=== PATIENT | male | born 2000 | race Caucasian/White ===

== ENCOUNTER 2019-01-13 20:15 | Emergency (ER) | payer OTHER ==
[2019-01-13 20:21] VITALS: BP 115/71
[2019-01-13] MEDS ORDERED: IBUPROFEN 800 MG TABLET PO ONE (20:29)
--- NOTE | 2019-01-13 20:43 | ER Document Report ---
HPI - HPI Time Seen by Provider: 01/13/19 20:26 Pain Level: 5 Notes: Patient is a 18-year-old male with no significant past medical history presents complaining nasal congestion/discharge, fever, sore throat, dry cough for the past 5 days. Patient states that his throat is the worst of the symptoms. He has noticed some exudates. He is able to eat and drink, but does have decreased p.o. intake. He is urinating normally and having normal bowel movements. Denies drug allergies. Denies any headache, fever, neck pain, changes in vision/speech/mentation/hearing, chest pain, palpitations, syncope, shortness of breath, wheeze, dyspnea, abdominal pain, nausea/vomiting/diarrhea, urinary retention, dysuria, hematuria, or rash. - ROS Systems Reviewed and Negative: Yes All other systems reviewed and negative Past Medical History - Social History Smoking Status: Former Smoker Family History: Reviewed & Not Pertinent Patient has suicidal ideation: No Patient has homicidal ideation: No Vertical Provider Document - CONSTITUTIONAL Agree With Documented VS: Yes Notes: PHYSICAL EXAMINATION: GENERAL: Well-appearing, well-nourished and in no acute distress. A&Ox4. Answers questions appropriately. Moves comfortably w/o notable distress HEAD: Atraumatic, normocephalic. EYES: Pupils equal round and reactive to light, extraocular movements intact, sclera anicteric, conjunctiva are normal. ENT: EAC clear b/l. TM's intact b/l without erythema, fluid, or perforation. Nares patent and with clear discharge. oropharynx erythema without exudates. 1+ tonsilar hypertrophy with erythema + exudates. No palatine shift. Uvula midline. No tongue protrusion. No drooling, hoarseness, or airway compromise. Moist mucous membranes. No sinus tenderness. NECK: Normal range of motion, supple without lymphadenopathy. No rigidity/meningismus. LUNGS: Breath sounds clear to auscultation bilaterally and equal. No wheezes rales or rhonchi. No retractions HEART: Regular rate and rhythm without murmurs, rubs, gallops. ABDOMEN: Soft, nontender, nondistended abdomen. No guarding, no rebound. Normal bowel sounds present. No CVA tenderness bilaterally. NEUROLOGICAL: Normal speech, normal gait. PSYCH: Normal mood, normal affect. SKIN: Warm, Dry, normal turgor, no rashes or lesions noted. Course - Re-evaluation Re-evalutation: 01/13/19 21:28 Patient is a well-hydrated, 18-year-old male who presents with strep pharyngitis and fever. Vitals are currently acceptable. Patient was given antipyretic for fever. Rapid strep positive. [place] and chest x-ray were negative. Patient is nontoxic-appearing and is tolerating p.o. without difficulty. Patient opted for the penicillin shot in lieu of a 10-day prescription. He also received Decadron. No further work-up warranted at this time. Low suspicion for any meningitis, sepsis, peritonsillar/pharyngeal abscess, respiratory compromise, Car's, or other emergent systemic condition at this time. Patient is aware this condition can change from initial presentation and he needs to monitor symptoms closely. Conservative measures otherwise for symptoms. Recheck with your PCM in 2-3 days. Return to the ED with any worsening/concerning symptoms otherwise as reviewed in discharge. Patient is in agreement. - Vital Signs Vital signs: Temp Pulse Resp BP Pulse Ox 102.2 F H 83 20 115/71 98 01/13/19 20:19 01/13/19 20:19 01/13/19 20:19 01/13/19 20:19 01/13/19 20:19 Discharge - Discharge Clinical Impression: Strep pharyngitis Condition: Stable Disposition: HOME, SELF-CARE Instructions: Strep Throat ([facility]) Additional Instructions: Maintain adequate fluid intake Take meds as directed Salt water gargles, throat sprays, mouthwash rinse, peroxide gargles tylenol/ibuprofen as needed New toothbrush tomorrow evening over the counter cold medication as needed for symptoms F/u: with your PCM in 2-3 days for a recheck Consider consult with ENT for ongoing/worsening symptoms Return to the ED with any fever, worsening pain, chest pain, neck pain/stiffness, shortness of breath, cough, drooling, trouble swallowing/bill thing, abdominal pain, n/v/d, rash, or worsening/concerning symptoms otherwise. Referrals: KUNAL MERAZ DO [ASSOCIATE] - Follow up as needed
--- NOTE | 2019-01-13 21:01 | RADIOLOGY REPORT (SQ) ---
XR CHEST 2 VIEWS EXAM DATE: 01/13/2019 8:29 PM [facility] [employer]RAW[employer] HISTORY: cough, fever. COMPARISON: None. FINDINGS: The heart size is within normal limits. No consolidation, pleural effusion, or pneumothorax is seen. No acute bony findings. IMPRESSION: No acute cardiopulmonary disease.
[2019-01-13] MEDS ORDERED: PENICILLIN G BENZATHINE 1.2 MILLION UNIT/2 ML DISP.SYRIN IM ONE (21:30)
[2019-01-13] MEDS ORDERED: DEXAMETHASONE 4 MG TABLET PO ONE (21:30)
== END 2019-01-13 22:05 | disposition home or self-care (01) ==
LOC: ER 20:15
DX: J02.0 Streptococcal pharyngitis (principal); R09.81 Nasal congestion; R50.9 Fever, unspecified; R05 Cough
CPT/HCPCS: 99283; 96372; 36415; 87880; 86308; 71046; J8540; J0561

== ENCOUNTER 2019-03-27 14:58 | Emergency (ER) | payer OTHER ==
[2019-03-27 15:20] VITALS: BP 123/50
[2019-03-27] MEDS ORDERED: IBUPROFEN 600 MG TABLET PO ONE (15:31)
--- NOTE | 2019-03-27 15:34 | ER Document Report ---
HPI - HPI Time Seen by Provider: 03/27/19 15:29 Pain Level: 3 Context: Patient is a 18-year-old male who presents the emergency department with a chief complaint of right foot pain. He states that he went to do a front kick and ended up kicking somebody's elbow. The plantar portion of his foot is the part that hurts. Denies any past medical history. He does not take any medications. - ROS Systems Reviewed and Negative: Yes All other systems reviewed and negative - CONSTITUTIONAL Constitutional: DENIES: Fever, Chills - MUSCULOSKELETAL Musculoskeletal: REPORTS: Extremity pain - Right foot - DERM Skin Color: Normal Skin Problems: Bruise - Right foot Past Medical History - Social History Smoking Status: Former Smoker Family History: Reviewed & Not Pertinent Patient has suicidal ideation: No Patient has homicidal ideation: No Vertical Provider Document - CONSTITUTIONAL Agree With Documented VS: Yes Exam Limitations: No Limitations General Appearance: No Apparent Distress - HEENT HEENT: Atraumatic, Normocephalic, PERRLA - NECK Neck: Normal Inspection - RESPIRATORY Respiratory: No Respiratory Distress - CARDIOVASCULAR Cardiovascular: Regular Rate, Regular Rhythm Pulses: Normal: Posterior tibial, Dorsalis pedis - MUSCULOSKELETAL/EXTREMETIES Musculoskeletal/Extremeties: Tender - Right foot at fourth metacarpal, Eccymosis - Right foot - NEURO Level of Consciousness: Awake, Alert, Appropriate Motor/Sensory: No Motor Deficit, No Sensory Deficit - DERM Integumentary: Warm, Dry, No Rash Course - Re-evaluation Re-evalutation: 03/27/19 16:26 Patient's foot x-ray is negative for any acute findings. Patient will be placed in Bong wrap, postop shoe and crutches. He will follow-up with his primary care provider if his pain continues. Capillary refill less than 3 seconds. Follow- up precautions were given. Verbal discharge instructions were given to the patient. They verbalized understanding. They are stable for discharge. - Vital Signs Vital signs: Temp Pulse Resp BP Pulse Ox 98.5 F 61 18 123/50 L 100 03/27/19 15:19 03/27/19 15:19 03/27/19 15:19 03/27/19 15:19 03/27/19 15:19 Discharge - Discharge Clinical Impression: Right foot pain Condition: Stable Disposition: HOME, SELF-CARE Additional Instructions: You were seen today in the emergency department for right foot pain. Please follow-up with your primary care provider as needed. You can take Tylenol 1000 mg and ibuprofen 600 mg every 6 hours for your pain. Please make sure you rest, apply ice, elevate your foot, and keep on your crutches. Forms: Special Work Note
--- NOTE | 2019-03-27 16:02 | RADIOLOGY REPORT (SQ) ---
EXAM DESCRIPTION: FOOT RIGHT COMPLETE COMPLETED DATE/TIME: 03/27/2019 3:53 pm REASON FOR STUDY: kicked another person's elbow; foot pain COMPARISON: None. NUMBER OF VIEWS: Three views. TECHNIQUE: AP, lateral and oblique radiographic images acquired of the right foot. LIMITATIONS: None. FINDINGS: MINERALIZATION: Normal. BONES: No acute fracture or dislocation. No worrisome bone lesions. JOINTS: No effusions. SOFT TISSUES: No soft tissue swelling. No foreign body. OTHER: No other significant finding. IMPRESSION: NEGATIVE STUDY OF THE RIGHT FOOT. NO RADIOGRAPHIC EVIDENCE OF ACUTE INJURY. TECHNICAL DOCUMENTATION: JOB ID: [id number] [employer]- All Rights Reserved Reading location - IP/workstation name: [email or web address]
== END 2019-03-27 16:44 | disposition home or self-care (01) ==
LOC: ER 14:58
DX: M79.671 Pain in right foot (principal)
CPT/HCPCS: 99283